=== PATIENT | male | born 1965 | race Caucasian/White ===

== ENCOUNTER 2018-11-13 12:53 | Emergency (ER) | payer SELFPAY ==
--- NOTE | 2018-11-13 12:57 | EDM.PDOC ---
ED HPI GENERAL MEDICAL PROBLEM - General Chief Complaint: General Stated Complaint: HEAD SPINNING, BITE ON LT SIDE OF FACE Time Seen by Provider: 11/13/18 12:56 Source of Information: Reports: Patient History Limitations: Reports: No Limitations - History of Present Illness INITIAL COMMENTS - FREE TEXT/NARRATIVE: HISTORY AND PHYSICAL: History of present illness: Patient is a 53-year-old male who presents to the emergency room today with complaints of a insect bite to his left ear. He states he noticed this approximately 2 weeks ago and has been somewhat bothersome. He states he has been picking and squeezing at it and getting clear bloody drainage from it. Concerned that it may be infected. He states he does occasionally have some dizziness associated with "messing with it". States the dizziness resolves within a few minutes. Patient denies any fever, chills, headache, change in vision, syncope or near syncope. Denies any chest pain, back pain, shortness of breath or cough. Denies any abdominal pain, nausea, vomiting, diarrhea, constipation or dysuria. Patient has been eating and drinking appropriately. Review of systems: As per history of present illness and below otherwise all systems reviewed and negative. Past medical history: As per history of present illness and as reviewed below otherwise noncontributory. Surgical history: As per history of present illness and as reviewed below otherwise noncontributory. Social history: See social history for further information Family history: As per history of present illness and as reviewed below otherwise noncontributory. Physical exam: General: Well-developed and well-nourished 53-year-old male. Alert and oriented. Nontoxic appearing and in no acute distress. HEENT: Atraumatic, normocephalic, pupils equal and reactive bilaterally, negative for conjunctival pallor or scleral icterus, mucous membranes moist, right TM normal, left TM mildly erythematous with partial obstruction due to cerumen, throat clear, neck supple, nontender, trachea midline. No drooling or trismus noted. No meningeal signs. No hot potato voice noted. Lungs: Clear to auscultation, breath sounds equal bilaterally, chest nontender. Heart: S1S2, regular rate and rhythm without overt murmur Abdomen: Soft, nondistended, nontender. Skin: There is a scab to the left ear with dry skin surrounding area. No erythema, fluctuance or soft tissue swelling. No mastoid tenderness with palpation. Skin is otherwise intact, warm, dry. No lesions or rashes noted. Extremities: Atraumatic, moves all extremities per self without difficulty or deficits, negative for cords or calf pain. Neurovascular unremarkable. Neuro: Awake, alert, oriented. Cranial nerves II through XII unremarkable. Cerebellum unremarkable. Motor and sensory unremarkable throughout. Exam nonfocal. Notes: Debrox placed in the left ear with education. We'll place on antibiotics. Vital signs are stable and have been reviewed by me. Supportive care measures were reviewed and discussed. Voices understanding and is agreeable to plan of care. Denies any further questions or concerns at this time. Diagnostics: None Therapeutics: Debrox Prescription: Augmentin Impression: Otitis Media, left Plan: 1. Keep the skin clean and dry. Continue to monitor for signs of improvement. Take the antibiotic as prescribed. 2. Increase your oral fluids. Tylenol and/or ibuprofen as needed for pain management. 3. Follow-up with your primary care provider as we discussed. Return to the ED as needed and as discussed. Definitive disposition and diagnosis as appropriate pending reevaluation and review of above. - Related Data Allergies Allergy/AdvReac Type Severity Reaction Status Date / Time Iodinated Contrast- Oral and Allergy Itching Verified 11/13/18 13:20 IV Dye [Iodinated Contrast Media - IV Dye] Home Meds: Home Meds Amoxicillin/Clavulanate K [Augmentin 875-125 MG] 1 tab PO BID 10 Days #20 tablet 11/13/18 [Rx] Past Medical History - Past Health History Medical/Surgical History: Denies Medical/Surgical History ED ROS GENERAL - Review of Systems Review Of Systems: ROS reveals no pertinent complaints other than HPI. ED EXAM, GENERAL - Physical Exam Exam: See Below (See dictation) Course - Vital Signs Last Recorded V/S: Last Vital Signs Temp 97.8 F 11/13/18 13:16 Pulse 73 11/13/18 13:16 Resp 18 11/13/18 13:16 BP 119/86 11/13/18 13:16 Pulse Ox 96 11/13/18 13:16 - Orders/Labs/Meds Meds: Medications Discontinued Medications Generic Name Dose Route Start Last Admin Trade Name Freq PRN Reason Stop Dose Admin Carbamide Perox/Anhydrous Glycerin 1 ml 11/13/18 13:31 Debrox 6.5% Otic Soln LILIF 11/13/18 13:32 ONETIME ONE Departure - Departure Time of Disposition: 13:28 Disposition: Home, Self-Care 01 Clinical Impression: Otitis media Qualifiers: Otitis media type: suppurative Chronicity: acute Laterality: left Recurrence: non-recurrent Spontaneous tympanic membrane rupture: without spontaneous rupture Qualified Code(s): H66.002 - Acute suppurative otitis media without spontaneous rupture of ear drum, left ear - Discharge Information Prescriptions: Amoxicillin/Clavulanate K [Augmentin 875-125 MG] 1 tab PO BID 10 Days #20 tablet Instructions: Otitis Media, Adult, [id number] Referrals: PCP,Unknown [Primary Care Provider] - Forms: ED Department Discharge Additional Instructions: The following information is given to patients seen in the emergency department who are being discharged to home. This information is to outline your options for follow-up care. We provide all patients seen in our emergency department with a follow-up referral. The need for follow-up, as well as the timing and circumstances, are variable depending upon the specifics of your emergency department visit. If you don't have a primary care physician on staff, we will provide you with a referral. We always advise you to contact your personal physician following an emergency department visit to inform them of the circumstance of the visit and for follow-up with them and/or the need for any referrals to a consulting specialist. The emergency department will also refer you to a specialist when appropriate. This referral assures that you have the opportunity for follow-up care with a specialist. All of these measure are taken in an effort to provide you with optimal care, which includes your follow-up. Under all circumstances we always encourage you to contact your private physician who remains a resource for coordinating your care. When calling for follow-up care, please make the office aware that this follow-up is from your recent emergency room visit. If for any reason you are refused follow-up, please contact the [facility] Emergency Department at and asked to speak to the emergency department charge nurse. [facility] [address] [place] [id number] [facility] [address] [place] [address] 1. Keep the skin clean and dry. Continue to monitor for signs of improvement. Take the antibiotic as prescribed. 2. Increase your oral fluids. Tylenol and/or ibuprofen as needed for pain management. 3. Follow-up with your primary care provider as we discussed. Return to the ED as needed and as discussed.
[2018-11-13] MEDS ORDERED: Carbamide Peroxide 6.5% Otic Soln 15 ML Bottle EARLF ONE (13:31)
== END 2018-11-13 13:55 | disposition home or self-care (01) ==
LOC: MW.ED 12:53
DX: H66.002 Acute suppurative otitis media without spontaneous rupture of ear drum, left ear (principal); Z91.041 Radiographic dye allergy status
CPT/HCPCS: 99281; A9270; 99282